=== PATIENT | female | born 1955 | race Caucasian/White ===

== ENCOUNTER 2025-04-29 06:32 | Inpatient (IN) | payer MEDICARE, OTHER ==
[~2025-04-29] VITALS: Ht 162.6 cm; Wt 75.5 kg
[2025-04-29] MEDS ORDERED: dexaMETHasone SOD PHOSPHATE 2 ML ONE (06:51)
[2025-04-29] MEDS ORDERED: LIDOCAINE 2%-EPI 1:100,000 30 ML VIAL ONE (06:51)
[2025-04-29] MEDS ORDERED: VANCOMYCIN 1 GM VIAL ONE (06:51)
[2025-04-29] MEDS ORDERED: ANESTHESIA TRAY IN PYXIS 1 EA TRAY MC ONE (06:51)
[2025-04-29] MEDS ORDERED: OXYMETAZOLINE HCL NASAL SPRAY 30 ML BOTTLE NS ONE (07:20)
[2025-04-29] MEDS ORDERED: SUGAMMADEX SODIUM 200 MG/2 ML VIAL IV ONE (07:25)
[2025-04-29] MEDS ORDERED: LIDOCAINE 2% JEL UROJET 10 ML MM ONE (07:25)
[2025-04-29] MEDS ORDERED: MIDAZOLAM HCL 2 MG/2ML VIAL ONE (07:25)
[2025-04-29] MEDS ORDERED: FENTANYL PF 100MCG/2ML AMPUL ONE (07:25)
[2025-04-29] MEDS ORDERED: ROCURONIUM BROMIDE 50 MG/5 ML ONE (07:26)
[2025-04-29] MEDS ORDERED: FAMOTIDINE/PF INJ 20 MG/2 ML VIAL IV ONE (07:26)
[2025-04-29] MEDS ORDERED: LABETALOL HCL IV 100MG VIAL ONE (08:12)
[2025-04-29] MEDS ORDERED: FLUMAZENIL 0.5 MG VIAL ONE (09:35)
[2025-04-29] MEDS ORDERED: ACETAMINOPHEN 325 MG TABLET PO PRN (11:30)
[2025-04-29] MEDS: ONDANSETRON HCL/PF 4 MG/2 ML VIAL IV PRN (12:41)
[2025-04-29] MEDS: HYDROMORPHONE 1 MG/1 ML DISP.SYRIN IV PRN (12:42)
[2025-04-29] MEDS ORDERED: ATOR40TA PO (12:43)
[2025-04-29] MEDS ORDERED: CYAN10006 IJ (12:43)
[2025-04-29] MEDS ORDERED: APIX5TAB PO (12:43)
[2025-04-29] MEDS ORDERED: NAPR-1196 PO (12:43)
[2025-04-29] MEDS ORDERED: LORA-258 PO (12:43)
[2025-04-29] MEDS ORDERED: ALBU18HF2 INH (12:43)
[2025-04-29] MEDS ORDERED: FENO145T21 PO (12:43)
[2025-04-29] MEDS ORDERED: TOLT4CAP14 PO (12:43)
[2025-04-29] MEDS ORDERED: MONT10TA22 PO (12:43)
[2025-04-29] MEDS ORDERED: ESOM40CA52 PO (12:43)
[2025-04-29] MEDS ORDERED: VALS40TA12 PO (12:43)
[2025-04-29] MEDS ORDERED: CARV3.122 PO (12:43)
[2025-04-29] MEDS ORDERED: DOCU100C58 PO (12:43)
[2025-04-29] MEDS ORDERED: TRAM50TA2 PO (12:43)
[2025-04-29] MEDS ORDERED: ESCI5TAB PO (12:43)
[2025-04-29] MEDS ORDERED: TRAMADOL HCL 50 MG TABLET PO PRN (13:30)
[2025-04-29] MEDS ORDERED: LORAZEPAM 0.5 MG TABLET PO PRN (13:30)
[2025-04-29] MEDS ORDERED: NAPROXEN 500 MG TABLET PO PRN (13:30)
[2025-04-29] MEDS ORDERED: CARVEDILOL 3.125 MG TABLET PO PRN (13:30)
[2025-04-29] MEDS ORDERED: MONTELUKAST SODIUM (10MG) 10 MG TABLET PO PRN (13:30)
[2025-04-29] MEDS: IV NS 0.9% 1,000 ML IV PRN (14:00)
[2025-04-29 16:00] VITALS: BP 162/87; TEMP 97.5; O2SAT 97
[2025-04-29] MEDS ORDERED: ZOLPIDEM TARTRATE 5 MG TABLET PO PRN (18:00)
[2025-04-29 20:00] VITALS: BP 136/79; TEMP 97.5; O2SAT 96
[2025-04-29] MEDS: VANCOMYCIN 1 GM in IV D5W 250ml IV SCH (21:20)
[2025-04-29 21:25] VITALS: BP 136/79; TEMP 97.5; O2SAT 96
[2025-04-30 07:30] VITALS: BP 126/65; TEMP 97.7; O2SAT 96
[2025-04-30 09:00] VITALS: BP 126/65
[2025-04-30] MEDS: ATORVASTATIN 40 MG TABLET PO SCH (09:00)
[2025-04-30] MEDS: VALSARTAN 80 MG TABLET PO SCH (09:00)
[2025-04-30] MEDS: OXYBUTYNIN CHLORIDE 5 MG TABLET PO SCH (09:00)
[2025-04-30] MEDS: FENOFIBRATE NANOCRYS (145 MG) 145 MG TABLET PO SCH (09:00)
[2025-04-30] MEDS ORDERED: APIXABAN 5 MG TABLET PO SCH (09:00)
[2025-04-30] MEDS: DOCUSATE SODIUM 100 MG CAPSULE PO SCH (09:19)
[2025-04-30] MEDS: PANTOPRAZOLE 40 MG TABLET.DR PO SCH (09:19)
[2025-04-30] MEDS ORDERED: CARVEDILOL 3.125 MG TABLET PO PRN (09:23)
[2025-05-05] MEDS ORDERED: CYANOCOBALAMIN 1,000 MCG/ML VIAL IJ SCH (14:23)
== END 2025-04-30 13:00 | disposition home or self-care (01) | DRG 141 ==
LOC: DS 06:32 → MED 10:55
PROVIDERS: ADMIT Internal Medicine; ATTEND Internal Medicine
PROC: 0NST04Z Reposition Right Mandible with Internal Fixation Device, Open Approach (ICD-10-PCS; 2025-04-29)
PROC: 0N5V0ZZ Destruction of Left Mandible, Open Approach (ICD-10-PCS; 2025-04-29)
PROC: 0N5T0ZZ Destruction of Right Mandible, Open Approach (ICD-10-PCS; 2025-04-29)
PROC: 0NUV07Z Supplement Left Mandible with Autologous Tissue Substitute, Open Approach (ICD-10-PCS; 2025-04-29)
PROC: 0NUT07Z Supplement Right Mandible with Autologous Tissue Substitute, Open Approach (ICD-10-PCS; 2025-04-29)
PROC: 0NSV04Z Reposition Left Mandible with Internal Fixation Device, Open Approach (ICD-10-PCS; principal; 2025-04-29 07:30)
DX: S02.609B Fracture of mandible, unspecified, initial encounter for open fracture (principal); D68.59 Other primary thrombophilia; M27.2 Inflammatory conditions of jaws; I48.0 Paroxysmal atrial fibrillation; D16.5 Benign neoplasm of lower jaw bone; X58.XXXD Exposure to other specified factors, subsequent encounter; M19.90 Unspecified osteoarthritis, unspecified site; I10 Essential (primary) hypertension; Z79.01 Long term (current) use of anticoagulants; X58.XXXA Exposure to other specified factors, initial encounter; Z82.49 Family history of ischemic heart disease and other diseases of the circulatory system; Y92.9 Unspecified place or not applicable; M85.60 Other cyst of bone, unspecified site
CPT/HCPCS: 88305-TC; 88311-TC; A4338; C1713; G0378; J1100; J1171; J1308; J2250; J2405; J2704; J3010; J3373; J3490; J7030; J7060